=== PATIENT | female | born 1990 | race Caucasian/White ===

== ENCOUNTER 2017-02-26 10:58 | Inpatient (IN) | payer BC ==
[2017-02-26] MEDS ORDERED: Sodium Chloride 0.9% 10 ML Syringe FLUSH PRN (11:22)
[2017-02-26] MEDS ORDERED: Water For Irrigation,Sterile 1,000 ML Container IRR PRN (11:22)
[2017-02-26] MEDS ORDERED: Ampicillin 2 GM in Sodium Chloride 0.9% 100 ML IV ONE (11:22)
[2017-02-26] MEDS ORDERED: Carboprost Tromethamine 250 MCG/1 ML Amp IM PRN (11:22)
[2017-02-26] MEDS ORDERED: Misoprostol 200 MCG Tab PO PRN (11:22)
[2017-02-26] MEDS ORDERED: Nalbuphine 10 MG/1 ML Vial IVPUSH PRN (11:22)
[2017-02-26] MEDS ORDERED: Lidocaine 1% 50 ML MDV INJECT PRN (11:22)
[2017-02-26] MEDS ORDERED: Butorphanol 1 MG/ML SDV IVPUSH PRN (11:22)
[2017-02-26] MEDS ORDERED: Sodium Chloride 0.9% 2.5 ML Syringe FLUSH PRN (11:22)
[2017-02-26] MEDS ORDERED: Methylergonovine 0.2 MG/1 ML Amp IM PRN (11:22)
[2017-02-26] MEDS ORDERED: Oxytocin/Lactated Ringers 30 UNIT/500 ML BAG IV SCH (11:30)
[2017-02-26] MEDS: Lactated Ringers 1,000 ML IV SCH ×2 (11:37→12:20)
[2017-02-26] MEDS ORDERED: fentaNYL 100 MCG/2 ML SDV ONE (11:53)
[2017-02-26] MEDS ORDERED: Ropivacaine 0.2% 2 MG/ML 20 ML SDV ONE (11:54)
--- NOTE | 2017-02-26 12:31 | PCM.PREANE ---
Preanesthetic Assessment - Anesthesia/Transfusion/Family Hx Family History of Anesthesia Reaction: No - Review of Systems General: No Symptoms Pulmonary: No Symptoms Cardiovascular: No Symptoms Gastrointestinal: No symptoms Neurological: No Symptoms Other: Reports: None - Physical Assessment NPO Status Date: 02/26/17 NPO Status Time: 09:00 ([facility]) Height: 1.68 m Weight: 66.678 kg ASA Class: 2 Mental Status: Alert & Oriented x3 Dentition: Reports: Normal Dentition Thyro-Mental Finger Breadths: 3 Mouth Opening Finger Breadths: 3 ROM/Head Extension: Full - Lab Values: Laboratory Last Values WBC 8.24 K/uL (4.0-11.0) 02/26/17 11:32 RBC 4.30 M/uL (4.30-5.90) 02/26/17 11:32 Hgb 13.4 g/dL (12.0-16.0) 02/26/17 11:32 Hct 39.7 % (36.0-46.0) 02/26/17 11:32 MCV 92.3 fL (80.0-98.0) 02/26/17 11:32 MCH 31.2 pg (27.0-32.0) 02/26/17 11:32 MCHC 33.8 g/dL (31.0-37.0) 02/26/17 11:32 RDW Std Deviation 44.3 fl (28.0-62.0) 02/26/17 11:32 RDW Coeff of Josefa 13 % (11.0-15.0) 02/26/17 11:32 Plt Count 186 K/uL (150-400) 02/26/17 11:32 MPV 10.10 fL (7.40-12.00) 02/26/17 11:32 Nucleated RBC % 0.0 /100WBC 02/26/17 11:32 Nucleated RBCs # 0 K/uL 02/26/17 11:32 - Allergies Allergies/Adverse Reactions: Allergies Allergy/AdvReac Type Severity Reaction Status Date / Time No Known Allergies Allergy Verified 02/20/15 13:43 - Acknowledgements Anesthesia Type Planned: Epidural Pt an Appropriate Candidate for the Planned Anesthesia: Yes Alternatives and Risks of Anesthesia Discussed w Pt/Guardian: Yes Pt/Guardian Understands and Agrees with Anesthesia Plan: Yes PreAnesthesia Questionnaire - Past Health History Medical/Surgical History: Denies Medical/Surgical History Hematologic History: Reports: None (Denies any personal or family hx of bleeding or clotting problems) - Past Surgical History Female Surgical History: Reports: Breast Reconstruction (Breast augmentation) - SUBSTANCE USE Smoking Status *Q: Never Smoker Second Hand Smoke Exposure: No Recreational Drug Use History: No - HOME MEDS Home Medications: Home Meds Acetaminophen [Tylenol] 325 mg PO PRN 02/20/15 [History] PNV95/Ferrous Fumarate/FA [ Tablet] 1 each PO DAILY 02/20/15 [History] Benzocaine/Menthol [Dermoplast Pain Relief 20%-0.5% [place]] 78 gm TOP ASDIRECTED PRN #1 canister 02/21/15 [Rx] Docusate Sodium [Colace] 100 mg PO BID PRN #30 cap 02/21/15 [Rx] Ibuprofen [Motrin] 800 mg PO Q6H PRN #30 tablet 02/21/15 [Rx] Lanolin [Lansinoh HPA] 7 g TOP ASDIRECTED PRN #1 crm 02/21/15 [Rx] - CURRENT (IN HOUSE) MEDS Current Meds: Current Medications Butorphanol Tartrate (Stadol) 1 mg IVPUSH Q1H PRN PRN Reason: Pain Carboprost Tromethamine (Hemabate Ds) 250 mcg IM ASDIRECTED PRN PRN Reason: Post Hemorrhage Lactated Ringer's (Ringers, Lactated) 1,000 mls @ 150 mls/hr IV ASDIRECTED DELGADO Last Admin: 02/26/17 12:20 Dose: 150 mls/hr Oxytocin/Lactated Ringer's (Pitocin In Lr 30 Units/500 Ml) 30 unit in 500 mls @ 2 mls/hr IV TITRATE DELGADO; 2 MUNITS/MIN PRN Reason: Protocol Stop: 02/27/17 11:29 Ampicillin Sodium 1 gm/ Sodium (Chloride) 50 mls @ 100 mls/hr IV Q4H DELGADO Lidocaine HCl (Xylocaine 1%) 50 ml INJECT .ONCE PRN PRN Reason: Laceration repair Methylergonovine Maleate (Methergine) 0.2 mg IM ASDIRECTED PRN PRN Reason: Post Hemorrhage Misoprostol (Cytotec) 200 mcg PO .ONCE PRN PRN Reason: Post Hemorrhage Nalbuphine HCl (Nubain) 10 mg IVPUSH Q1H PRN PRN Reason: Pain (severe 7-10) Stop: 02/26/17 13:23 Sodium Chloride (Saline Flush) 10 ml FLUSH ASDIRECTED PRN PRN Reason: Keep Vein Open Sodium Chloride (Saline Flush) 2.5 ml FLUSH ASDIRECTED PRN PRN Reason: Keep Vein Open Sterile Water (Sterile Water For Irrigation) 1,000 ml IRR ASDIRECTED PRN PRN Reason: delivery Discontinued Medications Fentanyl (Sublimaze) Confirm Administered Dose 100 mcg .ROUTE .STK-MED ONE Stop: 02/26/17 11:54 Ampicillin Sodium 2 gm/ Sodium (Chloride) 100 mls @ 200 mls/hr IV ONETIME ONE Stop: 02/26/17 11:51 Last Admin: 02/26/17 11:42 Dose: 200 mls/hr Ropivacaine/Fentanyl/NS (Fentanyl 2 Mcg-Ropiv 0.2%-Ns) Confirm Administered Dose 100 mls @ as directed .ROUTE .STK-MED ONE Stop: 02/26/17 11:54 Ropivacaine (Naropin 0.2%) Confirm Administered Dose 20 ml .ROUTE .STK-MED ONE Stop: 02/26/17 11:55
[2017-02-26] MEDS ORDERED: Lanolin 100% Cream 7 GM Tube TOP PRN (13:23)
[2017-02-26] MEDS ORDERED: Docusate Sodium 100 MG Cap PO PRN (13:23)
[2017-02-26] MEDS ORDERED: oxyCODONE 5 MG Tab PO PRN (13:23)
[2017-02-26] MEDS ORDERED: Ibuprofen 800 MG Tab PO PRN (13:23)
[2017-02-26] MEDS ORDERED: Bisacodyl 10 MG Supp RECTAL PRN (13:23)
[2017-02-26] MEDS ORDERED: Acetaminophen 500 MG Tab PO PRN (13:23)
[2017-02-26] MEDS ORDERED: Benzocaine/Menthol 20%-0.5% Spray 78 GM Cannister TOP PRN (13:23)
[2017-02-26] MEDS ORDERED: Witch Hazel Medicated Pads 40/Jar TOP PRN (13:23)
[2017-02-26] MEDS: Ampicillin 1 GM in Sodium Chloride 0.9% 50 ML IV SCH (17:43)
--- NOTE | 2017-02-26 20:25 | PCM48HPAN ---
Post Anesthesia Note - EVALUATION WITHIN 48HRS OF ANESTHETIC Vital Signs in Normal Range: Yes Patient Participated in Evaluation: Yes Respiratory Function Stable: Yes Airway Patent: Yes Cardiovascular Function Stable: Yes Hydration Status Stable: Yes Pain Control Satisfactory: Yes Nausea and Vomiting Control Satisfactory: Yes Mental Status Recovered: Yes - COMMENTS/OBSERVATIONS Free Text/Narrative:: Sitting up in bed. States labor went really fast after the epidural and the epidural helped at the end.
--- NOTE | 2017-02-26 22:02 | OR ---
SURGEON: Ciera Gaytan DATE OF PROCEDURE: 02/26/2017 PRE-DELIVERY HISTORY: This is a 27-year-old, G3, P2, presented to Labor and Delivery with complaints of regular painful contractions. On initial exam, patient was noted to be 6 cm dilated and annia every 2 to 3 minutes. Of note, heart tracing was significant for category 1 status. The patient was also noted to be GBS positive. The patient was admitted and IV antibiotics was immediately started. The patient was allowed to receive her epidural. The patient did receive her 1st dose of IV antibiotics. The patient underwent spontaneous rupture of membranes within 2 hours of IV antibiotics. She did not receive her second dose of IV antibiotics before starting maternal expulsive efforts. PREOPERATIVE DIAGNOSES: 1. Intrauterine at 39 weeks and 2 days. 2. GBS positive. 3. Active labor. POSTOPERATIVE DIAGNOSES: 1. Intrauterine at 39 weeks and 2 days. 2. GBS positive. 3. Active labor. 4. Delivered. PROCEDURE PERFORMED: Spontaneous-assisted vaginal delivery. ANESTHESIA: Epidural. ESTIMATED BLOOD LOSS: 75 mL. FINDINGS: Viable female in vertex presentation with score of 9 and 9 at 1 and 5 minutes respectively and weight of 3460 g. Normal placenta with 3-vessel cord. Intact perineum. SPECIMEN REMOVED: Placenta. CONDITION: Postoperatively, the patient and tolerated the procedure well. COMPLICATIONS: None known. DESCRIPTION OF PROCEDURE: This female under epidural anesthesia delivered a viable female infant, with score of 9 and 9 at 1 and 5 minutes respectively. Weight of 3460 g. Delivery was via spontaneous assisted vaginal delivery with vertex presentation. Upon delivery of vertex, the head was delivered, followed by spontaneous delivery of the anterior shoulder and the body. The infant was bulb suctioned at delivery and was very vigorous. was placed directly on mom's abdomen at request. Cord was doubly clamped, cut, and cord blood was collected and sent for analysis. After delivery of the , IV Pitocin was given in a bolus fashion for active management of 3rd stage of labor. Upon checking for placenta and the vagina, it was noted that the uterus was clamped down around the placenta, so an aggressive fundal massage was completed and traction on the umbilical cord slowly. The placenta started to loosen and come through the dilated cervix. Portion of the placenta was delivered and the 2nd portion was still attached to the main placenta, but placenta overall was delivered in two pieces. Trailing membranes were recovered. The uterine surface was able to be examined and noted to be smooth cervix that could be reached. The patient's uterus was firm and minimal to no lochia. After delivery of and placenta, the vagina, perineum, and rectum were explored and the patient had an intact perineum. No lacerations. The lower uterine segment and vagina was cleared of all clots and debris. The patient was cleansed, pads were changed and bed was returned to functioning status. The patient and tolerated the procedure well. Sponge, lap, needle, and instrument counts were correct. NEWTYOL / MODL /[id number] KEVIN
--- NOTE | 2017-02-27 10:27 | PCM.PNPP ---
- General Info Date of Service: 02/27/17 Functional Status: Reports: pain controlled, tolerating diet, ambulating, urinating - Review of Systems General: Denies: Fever, Weakness, Malaise, Chills HEENT: Denies: headaches Pulmonary: Denies: shortness of breath, pleuritic chest pain Cardiovascular: Denies: Chest Pain, Palpitations, Dyspnea on Exertion Gastrointestinal: Denies: Abdominal pain Genitourinary: Denies: dysuria, incontinence Neurological: Denies: Headache Psychiatric: Denies: confusion, depression, mood lability, anxiety - General Info Date of Service: 02/27/17 - Patient Data Vital Signs - most recent: Last Vital Signs Temp 37.2 C 02/27/17 04:11 Pulse 72 02/27/17 04:11 Resp 18 02/27/17 04:11 BP 124/67 02/27/17 04:11 Pulse Ox 99 02/27/17 04:11 Weight - most recent: 147 lb Lab Results - last 24 hrs: Laboratory Results - last 24 hr 02/26/17 02/26/17 02/27/17 Range/Units 11:32 11:32 05:21 WBC 8.24 (4.0-11.0) K/uL RBC 4.30 (4.30-5.90) M/uL Hgb 13.4 12.5 (12.0-16.0) g/dL Hct 39.7 37.3 (36.0-46.0) % MCV 92.3 (80.0-98.0) fL MCH 31.2 (27.0-32.0) pg MCHC 33.8 (31.0-37.0) g/dL RDW Std Deviation 44.3 (28.0-62.0) fl RDW Coeff of Josefa 13 (11.0-15.0) % Plt Count 186 (150-400) K/uL MPV 10.10 (7.40-12.00) fL Nucleated RBC % 0.0 /100WBC Nucleated RBCs # 0 K/uL Blood Type O POSITIVE Antibody Screen NEGATIVE Med Orders - Current: Current Medications Acetaminophen (Tylenol Extra Strength) 500 mg PO Q4H PRN PRN Reason: Pain Benzocaine/Menthol (Dermoplast Pain Relief 20%-0.5% [place]) 78 gm TOP ASDIRECTED PRN PRN Reason: Perineal Comfort Measure Bisacodyl (Dulcolax) 10 mg RECTAL .ONCE PRN PRN Reason: Constipation Docusate Sodium (Colace) 100 mg PO BID PRN PRN Reason: Constipation Emollient Ointment (Lansinoh Hpa) 0 gm TOP ASDIRECTED PRN PRN Reason: Sore Nipples Ibuprofen (Motrin) 800 mg PO Q6H PRN PRN Reason: Pain Oxycodone HCl (Oxycodone) 5 mg PO Q2H PRN PRN Reason: Pain Sodium Chloride (Saline Flush) 10 ml FLUSH ASDIRECTED PRN PRN Reason: Keep Vein Open Sodium Chloride (Saline Flush) 2.5 ml FLUSH ASDIRECTED PRN PRN Reason: Keep Vein Open Witch Sol (Tucks) 1 pad TOP ASDIRECTED PRN PRN Reason: comfort care Discontinued Medications Butorphanol Tartrate (Stadol) 1 mg IVPUSH Q1H PRN PRN Reason: Pain Carboprost Tromethamine (Hemabate Ds) 250 mcg IM ASDIRECTED PRN PRN Reason: Post Hemorrhage Fentanyl (Sublimaze) Confirm Administered Dose 100 mcg .ROUTE .STK-MED ONE Stop: 02/26/17 11:54 Last Admin: 02/26/17 17:42 Dose: Not Given Ampicillin Sodium 2 gm/ Sodium (Chloride) 100 mls @ 200 mls/hr IV ONETIME ONE Stop: 02/26/17 11:51 Last Admin: 02/26/17 11:42 Dose: 200 mls/hr Lactated Ringer's (Ringers, Lactated) 1,000 mls @ 150 mls/hr IV ASDIRECTED DELGADO Last Admin: 02/26/17 12:20 Dose: 150 mls/hr Oxytocin/Lactated Ringer's (Pitocin In Lr 30 Units/500 Ml) 30 unit in 500 mls @ 2 mls/hr IV TITRATE DELGADO; 2 MUNITS/MIN PRN Reason: Protocol Stop: 02/27/17 11:29 Last Admin: 02/26/17 12:55 Dose: 2 munits/min, 2 mls/hr Ropivacaine/Fentanyl/NS (Fentanyl 2 Mcg-Ropiv 0.2%-Ns) Confirm Administered Dose 100 mls @ as directed .ROUTE .STK-MED ONE Stop: 02/26/17 11:54 Last Admin: 02/26/17 17:42 Dose: Not Given Ampicillin Sodium 1 gm/ Sodium (Chloride) 50 mls @ 100 mls/hr IV Q4H DELGADO Last Admin: 02/26/17 17:43 Dose: Not Given Lidocaine HCl (Xylocaine 1%) 50 ml INJECT .ONCE PRN PRN Reason: Laceration repair Methylergonovine Maleate (Methergine) 0.2 mg IM ASDIRECTED PRN PRN Reason: Post Hemorrhage Misoprostol (Cytotec) 200 mcg PO .ONCE PRN PRN Reason: Post Hemorrhage Nalbuphine HCl (Nubain) 10 mg IVPUSH Q1H PRN PRN Reason: Pain (severe 7-10) Stop: 02/26/17 13:23 Ropivacaine (Naropin 0.2%) Confirm Administered Dose 20 ml .ROUTE .STK-MED ONE Stop: 02/26/17 11:55 Last Admin: 02/26/17 17:42 Dose: Not Given Sterile Water (Sterile Water For Irrigation) 1,000 ml IRR ASDIRECTED PRN PRN Reason: delivery Last Admin: 02/26/17 13:14 Dose: 1,000 ml - Infant Interaction Disposition, : in Room with Family Interaction: Holding Feeding: Breastfed Infant; Nursed Well Support Person: - Recovery Exam Fundal Tone: Firm Fundal Level: 1 Fingerbreadths Below Umbilicus Fundal Placement: Midline Lochia Amount: Scant Lochia Color: Rubra/Red Perineum Description: Intact, Minimal Bruising/Swelling Urinary Elimination: Voided - Exam General: alert, oriented HEENT: Pupils equal Lungs: Clear to auscultation, Normal respiratory effort Cardiovascular: Regular Rate, Regular Rhythm Abdomen: bowel sounds present, soft, no tenderness, no distension Extremities: no calf tenderness, edema Neurological: no new focal deficit Psy/Mental Status: alert, normal affect, normal mood - Problem List & Annotations (1) Vaginal delivery SNOMED Code(s): 550052024 Code(s): O80 - ENCOUNTER FOR FULL-TERM UNCOMPLICATED DELIVERY Status: Acute Current Visit: No - Problem List Review Problem List Initiated/Reviewed/Updated: Yes - Assessment Assessment:: PPD#1 s/p , stable and afebrile Clinically stable for discharge - Plan Plan:: Discharge instructions reviewed Nothing in the vagina for 6 weeks Continue PNV Bleeding and infection precautions reviewed Follow up in 6 weeks
[2017-02-27 10:31] VITALS: BP 132/67
== END 2017-02-27 16:30 | disposition home or self-care (01) | DRG 560 ==
LOC: MW.OBCHECK 10:58 → MW.OB 11:01 → MW.OBCHECK 11:32 → MW.OB 11:32 → OBSVTOIN 12:55
PROVIDERS: ADMIT Obstetrics & Gynecology; ATTEND Obstetrics & Gynecology
PROC: 10E0XZZ Delivery of Products of Conception, External Approach (ICD-10-PCS; principal; 2017-02-26)
DX: O80 Encounter for full-term uncomplicated delivery (principal); Z3A.39 39 weeks gestation of pregnancy; Z37.0 Single live birth
CPT/HCPCS: 01967; 36415; 59025; 85014; 85018; 85027; 86850; 86900; 86901; J0290; J2795; J3010; J7030; J7120